=== PATIENT | male | born 1990 | race Caucasian/White ===

== ENCOUNTER → 2016-06-07 | Outpatient (CLI) | payer OTHER | END | disposition home or self-care (01) | LOC: C.LAB 02:10 | DX: Z02.83 Encounter for blood-alcohol and blood-drug test (principal) ==

== ENCOUNTER 2016-08-15 04:37 | Emergency (ER) | payer BC, OTHER ==
[~2016-08-15] VITALS: Ht 185.4 cm; Wt 82.7 kg
[2016-08-15 04:39] VITALS: TEMP 36.7; Ht 185.4 cm; Wt 82.7 kg
[2016-08-15 05:15] VITALS: O2SAT 94
[2016-08-15] MEDS ORDERED: SODIUM CHLORIDE 0.9% 1000ML 1,000 ML IV ONE (05:15)
[2016-08-15 05:31] LABS: BASO % 0.8 %; BASO ABS # 0.07 K/uL (0-0.2); COMPLETE YES; EOS % 3.1 %; HEMATOCRIT 47.1 % (42-52); IG% 0.1 %; LYMPH % 23.6 %; LYMPH ABS # 1.96 K/uL (1.2-3.4); MEAN CELL VOLUME 88.9 fL (80-100); MEAN CORPUSCULAR HEMOGLOBIN 30.9 pg (25-34); MEAN CORPUSCULAR HGB CONC 34.8 g/dl (32-36); MEAN PLATELET VOLUME 10.4 fL (7.4-10.4); MONO % 9.4 %; PLATELET COUNT 251 K/uL (130-400); WHITE BLOOD COUNT 8.29 K/uL (4.8-10.8)
[2016-08-15 05:33] LABS: POINT OF CARE TROPONIN I 0.01 ng/ml (0-0.045)
[2016-08-15 05:47] LABS: BUN/CREATININE RATIO 15.2 (10-20); CREATININE 1.1 mg/dl (0.60-1.40); POTASSIUM 3.5 mmol/L (3.5-5.1)
[2016-08-15 05:50] LABS: ALB/GLOB RATIO 1.1 (0.9-2)
[2016-08-15 06:05] VITALS: BP 164/90; PULSE 62; O2SAT 98
--- NOTE | 2016-08-15 06:57 | EMERGENCY ROOM VISIT NOTE ---
History First contact with patient: 04:53 Chief Complaint: CHEST PAIN Stated Complaint: CHEST PAIN Nursing Triage Summary: "i felt a rapid heartbeat at midnight, around 3am I felt chest pain, left side neck and left arm. I looked it up and I have 3 of the 5 signs. My dad had a heart attack in his 20's" "I am just getting over being sick, sinus infection, cough" History of Present Illness The patient is a 26 year old male who presents to the Emergency Room with complaints of chest pain that began about 3 or 4 hours ago. The patient states his discomfort is primarily left-sided and nonradiating. He states that his symptoms did persist for 30 or 40 minutes, and he decided to check his symptoms online. The patient states that he came concerned that he may be having a heart attack, as he states his father had a heart attack in his 20s. The patient has had some recent URI symptoms but these are improving. He does not have shortness of breath, abdominal pain, nausea, or vomiting. The patient does not have a history of chronic medical disease and considers himself usually healthy. He does work out regularly and is very physically active. The patient denies substance abuse. He rates his discomfort a sharp 4/10. He does not report aggravating or alleviating symptoms. Review of Systems More than 10 systems were reviewed and otherwise negative with the exception of history of present illness. Past Medical/Surgical History Medical Problems: (1) No Known Active Medical Problems Family History Family history of cardiac disease Social History Smoking Status: Current Every Day Smoker Housing Status: lives with family Current/Historical Medications No Active Prescriptions or Reported Meds Allergies Coded Allergies: No Known Allergies (Unverified , 08/15/16) Physical Exam Vital Signs Date Time Temp Pulse Resp B/P (MAP) Pulse Ox O2 Delivery O2 Flow Rate FiO2 08/15/16 06:05 62 20 164/90 98 08/15/16 05:26 90 08/15/16 05:15 94 Room Air 08/15/16 04:39 99 Room Air 08/15/16 04:39 36.7 93 20 157/94 98 Room Air Pain Rating (0-10): 0 Physical Exam VITALS: Vitals are noted on the nurse's note and reviewed by myself. Vital signs stable. GENERAL: Well-developed, well-nourished, white male, who is in no acute distress and resting comfortably. Patient is cooperative with the examination. HEAD: Normocephalic atraumatic. EARS: External ear normal. External auditory canals clear, tympanic membranes pearly denton without erythema or effusion bilaterally. EYES: Pupils equal round and reactive to light and accommodation. Conjunctivae without injection, sclerae without icterus. Extraocular movements intact. NOSE: Patent, turbinates without inflammation or discharge. MOUTH: Mucous membranes moist. Tonsils are not enlarged. Pharynx without erythema, blood, or exudate. Uvula midline. Airway patent. NECK: Supple without nuchal rigidity. No lymphadenopathy. No thyromegaly. Cervical spine is nontender. HEART: Regular rate and rhythm without murmurs gallops or rubs. LUNGS: Clear to auscultation bilaterally without wheezes, rales or rhonchi. No retractions or accessory muscle use. ABDOMEN: Positive normal bowel sounds x 4. Soft, nontender, without masses or organomegaly. No guarding or rebound tenderness. MUSCULOSKELETAL: No muscle atrophy, erythema, or edema noted. Full range of motion without joint tenderness in all extremities. No tenderness to palpation. Normal gait. Strength 5/5 throughout. NEURO: Patient was alert and oriented to person place and time. CN II through XII grossly intact. Deep tendon reflexes 2+ throughout. No focal neurological deficits SKIN: The skin was without rashes, erythema, edema, or bruising. Capillary reflex less than 2 seconds. Medical Decision & Procedures Laboratory Results 08/15/16 04:58 Red Blood Count 5.30, Mean Corpuscular Volume 88.9, Mean Corpuscular Hemoglobin 30.9, Mean Corpuscular Hemoglobin Concent 34.8, Mean Platelet Volume 10.4, Neutrophils (%) (Auto) 63.0, Lymphocytes (%) (Auto) 23.6, Monocytes (%) (Auto) 9.4, Eosinophils (%) (Auto) 3.1, Basophils (%) (Auto) 0.8, Neutrophils # (Auto) 5.21, Lymphocytes # (Auto) 1.96, Monocytes # (Auto) 0.78, Eosinophils # (Auto) 0.26, Basophils # (Auto) 0.07 08/15/16 04:58 Test 08/15/16 04:58 08/15/16 05:14 White Blood Count 8.29 K/uL (4.8-10.8) Red Blood Count 5.30 M/uL (4.7-6.1) Hemoglobin 16.4 g/dL (14.0-18.0) Hematocrit 47.1 % (42-52) Mean Corpuscular Volume 88.9 fL (80-100) Mean Corpuscular Hemoglobin 30.9 pg (25-34) Mean Corpuscular Hemoglobin Concent 34.8 g/dl (32-36) Platelet Count 251 K/uL (130-400) Mean Platelet Volume 10.4 fL (7.4-10.4) Neutrophils (%) (Auto) 63.0 % Lymphocytes (%) (Auto) 23.6 % Monocytes (%) (Auto) 9.4 % Eosinophils (%) (Auto) 3.1 % Basophils (%) (Auto) 0.8 % Neutrophils # (Auto) 5.21 K/uL (1.4-6.5) Lymphocytes # (Auto) 1.96 K/uL (1.2-3.4) Monocytes # (Auto) 0.78 K/uL (0.11-0.59) Eosinophils # (Auto) 0.26 K/uL (0-0.5) Basophils # (Auto) 0.07 K/uL (0-0.2) RDW Standard Deviation 41.3 fL (36.4-46.3) RDW Coefficient of Variation 12.8 % (11.5-14.5) Immature Granulocyte % (Auto) 0.1 % Immature Granulocyte # (Auto) 0.01 K/uL (0.00-0.02) Anion Gap 6.0 mmol/L (3-11) Est Creatinine Clear Calc Drug Dose 116.0 ml/min Estimated GFR () 107.6 Estimated GFR (Non- 92.8 BUN/Creatinine Ratio 15.2 (10-20) Calcium Level 9.0 mg/dl (8.5-10.1) Total Bilirubin 0.7 mg/dl (0.2-1) Aspartate Amino Transf (AST/SGOT) 19 U/L (15-37) Alanine Aminotransferase (ALT/SGPT) 26 U/L (12-78) Alkaline Phosphatase 86 U/L (45-117) Total Protein 8.1 gm/dl (6.4-8.2) Albumin 4.2 gm/dl (3.4-5.0) Globulin 3.9 gm/dl (2.5-4.0) Albumin/Globulin Ratio 1.1 (0.9-2) Lipase 104 U/L (73-393) Bedside D-Dimer 102 ng/mlFEU (0-450) Bedside Troponin I 0.010 ng/ml (0-0.045) Medications Administered Medications (Trade) Dose Ordered Sig/Rustam Route Start Time Stop Time Status Last Admin Dose Admin Sodium Chloride 1,000 ml @ 999 mls/hr Q1H1M ONCE IV 08/15/16 05:15 08/15/16 06:15 DC 08/15/16 05:20 999 MLS/HR ED Course Physical exam and history were performed. Nursing notes and EMR were reviewed. Patient appears to have left-sided chest pain for the past several hours. IV access was established and labs were obtained. EKG was performed was normal sinus rhythm without acute ST elevation. Patient was hydrated with normal saline. Chest x-ray was performed. The patient's blood work is as above and was reviewed. He does not have a significantly elevated white blood cell count, anemia, bandemia, or significant electrolyte imbalance. Lipase and transaminases are nondiagnostic. Troponin and d-dimer 1 negative. The patient remained in normal sinus rhythm on the library monitor. Chest x-ray was reviewed by myself and my attending physician without obvious acute findings. Overall the patient does appear stable for discharge home. He does not appear to be having an acute cardiopulmonary event. He was asked to follow with his primary care physician in the next few days for recheck of his condition. He will otherwise be treated conservatively and was invited back to the ER with any new, worsening, or concerning symptoms. The chart was completed utilizing [employer] Speech Voice Recognition Software. Grammatical errors, random word insertions, pronoun errors, and incomplete sentences are an occasional consequence of this system due to software limitations, ambient noise, and hardware issues. Any formal questions or concerns about the content, text, or information contained within the body of this dictation should be directly addressed to the provider for clarification. . Medical Decision Differential diagnosis includes, but is not limited to: Myocardial infarction, dysrhythmia, pericarditis, pneumothorax, aortic aneurysm/dissection, DVT/PE, anxiety, GERD, PUD, electrolyte imbalance, thyroid disorder, pneumonia, bronchitis, pancreatitis, and others Impression Primary Impression: Non-cardiac chest pain Departure Information Dispostion Home / Self-Care Condition GOOD Prescriptions No Active Prescriptions or Reported Meds Forms HOME CARE DOCUMENTATION FORM, IMPORTANT VISIT INFORMATION Patient Instructions My [facility] Additional Instructions You were seen and evaluated today on an emergency basis only. This is not a substitute for, or an effort to provide, complete comprehensive medical care. It is not possible to recognize and treat all injuries or illnesses in a single emergency department visit. For this reason it is recommended that you followup with your primary care physician next week for ongoing care and evaluation. For baseline pain relief you may alternate ibuprofen and acetaminophen every 4 hours for pain control. Take 600 mg ibuprofen (Advil) and then 4 hours later take 1000 mg acetaminophen (Tylenol). Do not take more than 3000 mg acetaminophen in a single day. You are welcome to return to the emergency department anytime with new, worsening, or concerning symptoms.
--- NOTE | 2016-08-15 07:00 | DIAGNOSTIC IMAGING REPORT ---
CHEST ONE VIEW PORTABLE CLINICAL HISTORY: Chest pain. COMPARISON STUDY: Chest radiograph November 16, 2013. FINDINGS: Lung volumes are normal. There is no pneumothorax or pleural effusion. No consolidation is identified and no evidence of pulmonary edema. Cardiomediastinal silhouette is normal. IMPRESSION: No acute cardiopulmonary findings. Electronically signed by: Rafael Peñaloza M.D. 08/15/2016 6:58 AM Dictated Date/Time: 08/15/2016 6:58 AM
== END 2016-08-15 06:06 | disposition home or self-care (01) ==
LOC: C.EDB 04:38
DX: R07.89 Other chest pain (principal); F17.210 Nicotine dependence, cigarettes, uncomplicated